=== PATIENT | male | born 1985 | race Caucasian/White ===

== ENCOUNTER 2018-12-09 03:09 | Emergency (ER) | payer MEDICAID ==
[~2018-12-09] VITALS: Ht 190.5 cm; Wt 77.2 kg
[2018-12-09] MEDS ORDERED: ketorolac trometh inj. 60 MG/2 ML VIAL IM ONE (03:55)
--- NOTE | 2018-12-09 03:55 | NUR ---
Discussed pt's pain and associated laceration, left lower lip and left hand. New order for Toradol received.
[2018-12-09 05:12] LABS: BASOPHILS % (AUTO) 0.5 % (0-1); EOSINOPHILS # (AUTO) 0.3 X10'3 (0-0.9); EOSINOPHILS % (AUTO) 3.4 % (0-6); HEMATOCRIT 32.7 % (42.0-52.0); HEMOGLOBIN 11.1 g/dl (14.0-17.9); LYMPHOCYTES # (AUTO) 0.9 X10'3 (1.1-4.8); LYMPHOCYTES % (AUTO) 11.3 % (21-51); MEAN CORPUSCULAR HEMOGLOBIN 29.4 PG (27.0-31.0); MEAN CORPUSCULAR HGB CONC 33.9 g/dL (33.0-36.5); MEAN CORPUSCULAR VOLUME 86.7 FL (78-98); MEAN PLATELET VOLUME 6.3 FL (7.4-10.4); MONOCYTES # (AUTO) 0.4 X10'3 (0-0.9); MONOCYTES % (AUTO) 5.6 % (2-12); NEUTROPHILS # (AUTO) 6.2 X10'3 (1.8-7.7); NEUTROPHILS % (AUTO) 79.2 % (42-75); PLATELET COUNT 289 X10'3 (140-440); RED BLOOD COUNT 3.78 X10'6 (4.70-6.10); RED CELL DISTRIBUTION WIDTH 14.6 % (11.5-14.5); WHITE BLOOD COUNT 7.8 X10'3 (4.5-11.0)
[2018-12-09 05:26] LABS: ALANINE AMINOTRANSFERASE 41 U/L (12-78); ALBUMIN 3.6 G/DL (3.4-5.0); ALKALINE PHOSPHATASE 75 IU/L (46-116); ANION GAP 7 (8-16); ASPARTATE AMINO TRANSFERASE 32 U/L (10-37); BILIRUBIN,TOTAL 0.3 MG/DL (0.1-1.0); BLOOD UREA NITROGEN 16 MG/DL (7-18); BUN/CREATININE RATIO 14.7 (5.4-32.0); CALCIUM 9.8 MG/DL (8.5-10.1); CHLORIDE 103 MMOL/L (99-107); CREATININE 1.09 MG/DL (0.60-1.10); GLUCOSE 156 MG/DL (70-104); POTASSIUM 4.2 MMOL/L (3.5-5.1); SODIUM 141 MMOL/L (135-145); TOTAL CARBON DIOXIDE 31.1 MMOL/L (24-32); TOTAL PROTEIN 7.3 G/DL (6.4-8.2); eGFR 79 ML/MIN
[2018-12-09] MEDS ORDERED: LIDOcaine 1% 30ml preserv. free vial IJ ONE (05:35)
--- NOTE | 2018-12-09 05:46 | NUR ---
Assisted Dr Dukes with lip suture. Left hand wounds cleaned, abx ointment applied then dressed with non adhesive dressing and taped in place.
[2018-12-09 05:53] VITALS: BP 133/71
== END 2018-12-09 06:16 | disposition home or self-care (01) ==
LOC: ER 03:10
DX: S01.511A Laceration without foreign body of lip, initial encounter (principal); S02.2XXA Fracture of nasal bones, initial encounter for closed fracture; S60.512A Abrasion of left hand, initial encounter; F15.90 Other stimulant use, unspecified, uncomplicated; F11.90 Opioid use, unspecified, uncomplicated; Y04.8XXA Assault by other bodily force, initial encounter; Y93.89 Activity, other specified; Y92.89 Other specified places as the place of occurrence of the external cause; Y99.8 Other external cause status
CPT/HCPCS: 12011; 36415; 70450; 70486; 71046; 72125; 80053; 85025; 96372; 99284; J1885; J3490

== ENCOUNTER 2018-12-31 14:46 | Emergency (ER) | payer MEDICAID ==
[~2018-12-31] VITALS: Ht 193 cm; Wt 79.5 kg
[2018-12-31 17:11] LABS: BASOPHILS % (AUTO) 0.2 % (0-1); EOSINOPHILS # (AUTO) 0.2 X10'3 (0-0.9); EOSINOPHILS % (AUTO) 1.4 % (0-6); HEMATOCRIT 33.1 % (42.0-52.0); HEMOGLOBIN 11.1 g/dl (14.0-17.9); LYMPHOCYTES % (AUTO) 8.5 % (21-51); MEAN CORPUSCULAR HEMOGLOBIN 28.8 PG (27.0-31.0); MEAN CORPUSCULAR HGB CONC 33.5 g/dL (33.0-36.5); MONOCYTES # (AUTO) 0.8 X10'3 (0-0.9); MONOCYTES % (AUTO) 6.6 % (2-12); NEUTROPHILS # (AUTO) 10.1 X10'3 (1.8-7.7); NEUTROPHILS % (AUTO) 83.3 % (42-75); PLATELET COUNT 356 X10'3 (140-440); RED BLOOD COUNT 3.85 X10'6 (4.70-6.10); RED CELL DISTRIBUTION WIDTH 14.8 % (11.5-14.5); WHITE BLOOD COUNT 12.1 X10'3 (4.5-11.0)
[2018-12-31 17:25] LABS: ALANINE AMINOTRANSFERASE 42 U/L (12-78); ALBUMIN 3.7 G/DL (3.4-5.0); ALBUMIN/GLOBULIN RATIO 0.9 (1.1-1.5); ALKALINE PHOSPHATASE 89 IU/L (46-116); ANION GAP 8 (8-16); ASPARTATE AMINO TRANSFERASE 28 U/L (10-37); BILIRUBIN,TOTAL 0.5 MG/DL (0.1-1.0); BLOOD UREA NITROGEN 14 MG/DL (7-18); BUN/CREATININE RATIO 13.9 (5.4-32.0); CALCIUM 9.6 MG/DL (8.5-10.1); CHLORIDE 98 MMOL/L (99-107); CREATININE 1.01 MG/DL (0.60-1.10); GLUCOSE 140 MG/DL (70-104); POTASSIUM 4.1 MMOL/L (3.5-5.1); SODIUM 134 MMOL/L (135-145); TOTAL CARBON DIOXIDE 28.4 MMOL/L (24-32); TOTAL PROTEIN 7.6 G/DL (6.4-8.2); eGFR 86 ML/MIN
[2018-12-31] MEDS ORDERED: HYDROcodone/acetaminophen 5mg/325mg tablet PO ONE (17:25)
[2018-12-31 18:04] VITALS: BP 123/68
[2018-12-31] MEDS ORDERED: CEPH-572 PO (19:34)
[2018-12-31] MEDS ORDERED: SULF1TAB49 PO (19:34)
== END 2018-12-31 19:48 | disposition home or self-care (01) ==
LOC: ER 14:47
DX: L02.511 Cutaneous abscess of right hand (principal); F15.90 Other stimulant use, unspecified, uncomplicated; F11.90 Opioid use, unspecified, uncomplicated; Z59.0 Homelessness
CPT/HCPCS: 10060; 26010; 36415; 73140; 80053; 85025; 85651; 99284

== ENCOUNTER 2019-01-03 13:02 | Emergency (ER) | payer MEDICAID ==
[~2019-01-03] VITALS: Ht 193 cm; Wt 79.0 kg
[~2019-01-03 13:02] MED LIST: CEPH-572 PO; SULF1TAB49 PO
[2019-01-03 13:24] VITALS: BP 110/69
== END 2019-01-03 15:29 | disposition home or self-care (01) ==
LOC: ER 13:02
DX: L02.511 Cutaneous abscess of right hand (principal); Z48.00 Encounter for change or removal of nonsurgical wound dressing; F15.90 Other stimulant use, unspecified, uncomplicated; F11.90 Opioid use, unspecified, uncomplicated; Z59.0 Homelessness; Z79.2 Long term (current) use of antibiotics; Z79.899 Other long term (current) drug therapy
CPT/HCPCS: 99281

== ENCOUNTER 2020-11-16 22:47 | Inpatient (IN) | payer MEDICAID ==
[~2020-11-16] VITALS: Ht 193 cm; Wt 79.7 kg
--- NOTE | 2020-11-16 22:55 | NUR ---
JESSIE JACKSON [phone] PT FRIEND WILL BE RIDE HOME
[2020-11-16] MEDS ORDERED: normal saline 1000ML IV soln IVB ONE (23:40)
[2020-11-17] VITALS (16 sets, daily range): BP systolic 96–124; BP diastolic 42–84
[2020-11-17 00:19] LABS: BASOPHILS % (AUTO) 0.4 % (0-1); EOSINOPHILS # (AUTO) 0.3 X10'3 (0-0.9); EOSINOPHILS % (AUTO) 2.7 % (0-6); HEMATOCRIT 33.3 % (42.0-52.0); HEMOGLOBIN 11.4 g/dl (14.0-17.9); LYMPHOCYTES # (AUTO) 1.7 X10'3 (1.1-4.8); LYMPHOCYTES % (AUTO) 16.7 % (21-51); MEAN CORPUSCULAR HEMOGLOBIN 30.3 PG (27.0-31.0); MEAN CORPUSCULAR HGB CONC 34.3 g/dL (33.0-36.5); MEAN CORPUSCULAR VOLUME 88.3 FL (78-98); MEAN PLATELET VOLUME 6.2 FL (7.4-10.4); MONOCYTES # (AUTO) 0.8 X10'3 (0-0.9); MONOCYTES % (AUTO) 8.3 % (2-12); NEUTROPHILS # (AUTO) 7.3 X10'3 (1.8-7.7); NEUTROPHILS % (AUTO) 71.9 % (42-75); PLATELET COUNT 302 X10'3 (140-440); RED BLOOD COUNT 3.77 X10'6 (4.70-6.10); RED CELL DISTRIBUTION WIDTH 14.4 % (11.5-14.5); WHITE BLOOD COUNT 10.1 X10'3 (4.5-11.0)
[2020-11-17 00:29] LABS: ALANINE AMINOTRANSFERASE 22 U/L (12-78); ALBUMIN 3.1 G/DL (3.4-5.0); ALBUMIN/GLOBULIN RATIO 0.7 (1.1-1.5); ALKALINE PHOSPHATASE 114 IU/L (46-116); ANION GAP 5 (8-16); ASPARTATE AMINO TRANSFERASE 19 U/L (10-37); BILIRUBIN,TOTAL 0.5 MG/DL (0.1-1.0); BLOOD UREA NITROGEN 14 MG/DL (7-18); BUN/CREATININE RATIO 16.1 (5.4-32.0); CALCIUM 8.8 MG/DL (8.5-10.1); CHLORIDE 98 MMOL/L (99-107); CREATININE 0.87 MG/DL (0.60-1.10); GLUCOSE 209 MG/DL (70-104); POTASSIUM 3.9 MMOL/L (3.5-5.1); SODIUM 135 MMOL/L (135-145); TOTAL CARBON DIOXIDE 31.6 MMOL/L (24-32); TOTAL PROTEIN 7.4 G/DL (6.4-8.2); eGFR > 90 ML/MIN
[2020-11-17 00:35] LABS: CLARITY,URINE CLEAR (Clear); COLOR,URINE YELLOW (Yellow); GLUCOSE, URINE 250 mg/dl (Neg); KETONES,URINE NEGATIVE (Neg); LEUKOCYTE ESTERASE ,URINE NEGATIVE (Neg); NITRITES, URINE NEGATIVE (Neg); OCCULT BLOOD,URINE NEGATIVE (Neg); PROTEIN,URINE TRACE mg/dl (Neg)
[2020-11-17 00:38] LABS: UA COLLECTION TYPE NON-SPECIFIED
[2020-11-17 00:47] LABS: AMORPHOUS PHOSPHATES 2+; BACTERIA,URINE FEW /HPF (Neg); RBC,URINE NONE SEEN /HPF (0-2); SQUAMOUS EPITHELIAL CELL,UR FEW /LPF (FEW); WBC,URINE 0-4 /HPF (0-4)
[2020-11-17 02:35] LABS: URINE AMPHETAMINE SCREEN POSITIVE (Neg); URINE BARBITUATE SCREEN NEGATIVE (Neg); URINE BENZODIAZEPINES SCREEN NEGATIVE (Neg); URINE CANNABINOID SCREEN POSITIVE (Neg); URINE COCAINE SCREEN NEGATIVE (Neg); URINE METHADONE SCREEN NEGATIVE (Neg); URINE OPIATE SCREEN POSITIVE (Neg); URINE PHENCYCLIDINE SCREEN NEGATIVE (Neg)
[2020-11-17] MEDS ORDERED: vancomycin/NS 1 GM ADD-VANTAGE 250 ML IV ONE (02:45)
[2020-11-17] MEDS ORDERED: normal saline 1000ML IV soln IVB ONE (02:50)
[2020-11-17] MEDS ORDERED: ketorolac tromethamine 15mg/ml inj. IV ONE (02:50)
[2020-11-17] MEDS ORDERED: iohexol 300mg/ml 100ml inj. ONE (02:56)
[2020-11-17 03:22] LABS: MAGNESIUM 1.8 MG/DL (1.5-2.4); TROPONIN I < 0.04 NG/ML (0.0-0.05)
--- NOTE | 2020-11-17 03:23 | NUR ---
pt to ct via wc
[2020-11-17 03:39] LABS: PARTIAL THROMBOPLASTIN TIME 29 SECONDS (22-32)
[2020-11-17] MEDS ORDERED: magnesium hydroxide 30ml (MOM) UD suspension PO PRN (04:45)
[2020-11-17] MEDS ORDERED: mag hydrox/Alum hydrox/simeth 30ml oral suspension PO PRN (04:45)
[2020-11-17] MEDS ORDERED: magnesium 4gm in 100ml NS 100 ML IV PRN (04:45)
[2020-11-17] MEDS ORDERED: magnesium 2GM in 50ml NS 50 ML IV PRN (04:45)
[2020-11-17] MEDS ORDERED: ondansetron/PF 4mg/2ml inj IV PRN ×2 (04:45→15:05)
[2020-11-17] MEDS ORDERED: morphine 2 MG/ML inj. syringe IV PRN ×2 (04:45→15:05)
[2020-11-17] MEDS ORDERED: acetaminophen 325mg tablet PO PRN (04:45)
[2020-11-17] MEDS ORDERED: potassium Cl 20 mEq SR tablet PO PRN ×2 (04:45)
[2020-11-17] MEDS ORDERED: magnesium Cl slow-release 64mg tablet PO PRN (04:45)
[2020-11-17] MEDS ORDERED: potassium Cl 40MEQ/1/2NS 520ml 520 ML IV PRN ×2 (04:45)
[2020-11-17] MEDS: normal saline 1000ml 1,000 ML IV SCH ×3 (05:10→18:25)
[2020-11-17 07:51] LABS: BASOPHILS % (AUTO) 0.4 % (0-1); EOSINOPHILS # (AUTO) 0.4 X10'3 (0-0.9); EOSINOPHILS % (AUTO) 3.5 % (0-6); HEMATOCRIT 34.2 % (42.0-52.0); HEMOGLOBIN 11.6 g/dl (14.0-17.9); LYMPHOCYTES # (AUTO) 1.6 X10'3 (1.1-4.8); LYMPHOCYTES % (AUTO) 14.9 % (21-51); MEAN CORPUSCULAR HEMOGLOBIN 29.8 PG (27.0-31.0); MEAN CORPUSCULAR HGB CONC 33.9 g/dL (33.0-36.5); MEAN PLATELET VOLUME 6.4 FL (7.4-10.4); MONOCYTES # (AUTO) 0.9 X10'3 (0-0.9); MONOCYTES % (AUTO) 8.2 % (2-12); NEUTROPHILS # (AUTO) 7.8 X10'3 (1.8-7.7); PLATELET COUNT 279 X10'3 (140-440); RED BLOOD COUNT 3.88 X10'6 (4.70-6.10); WHITE BLOOD COUNT 10.7 X10'3 (4.5-11.0)
[2020-11-17] MEDS: K and/or MAG REPLACEMENT MC SCH ×2 (08:00→20:00)
[2020-11-17 08:28] LABS: ALANINE AMINOTRANSFERASE 19 U/L (12-78); ALBUMIN 2.8 G/DL (3.4-5.0); ALBUMIN/GLOBULIN RATIO 0.7 (1.1-1.5); ALKALINE PHOSPHATASE 114 IU/L (46-116); ANION GAP 8 (8-16); ASPARTATE AMINO TRANSFERASE 16 U/L (10-37); BILIRUBIN,TOTAL 0.5 MG/DL (0.1-1.0); BLOOD UREA NITROGEN 11 MG/DL (7-18); BUN/CREATININE RATIO 14.3 (5.4-32.0); CALCIUM 8.8 MG/DL (8.5-10.1); CHLORIDE 102 MMOL/L (99-107); CREATININE 0.77 MG/DL (0.60-1.10); GLUCOSE 145 MG/DL (70-104); SODIUM 137 MMOL/L (135-145); TOTAL CARBON DIOXIDE 27.4 MMOL/L (24-32); eGFR > 90 ML/MIN
[2020-11-17] MEDS ORDERED: NO HOME MEDS ×2 (10:37→10:39)
[2020-11-17] MEDS: clindamycin 300mg/D5W 50mL 50 ML IV SCH ×3 (11:45→21:37)
[2020-11-17] MEDS: vancomycin/NS 1 GM ADD-VANTAGE 250 ML IV SCH ×2 (11:45→19:15)
[2020-11-17] MEDS: HYDROmorphone inj. 0.5 MG/0.5 ML DISP.SYRIN IV PRN ×2 (14:34→19:16)
[2020-11-17] MEDS ORDERED: BUPIVAcaine/PF 2.5mg/ml (0.25%) 10ml vial ONE (15:00)
--- NOTE | 2020-11-17 15:02 | NUR ---
Pt to or via bed report called to
[2020-11-17] MEDS ORDERED: morphine 4 MG/ML inj SYRINge IV PRN (15:05)
[2020-11-17] MEDS ORDERED: meperidine/PF 25mg/ml syringe IV PRN ×3 (15:05)
[2020-11-17] MEDS ORDERED: acetaminophen 1,000mg/100ml IV 100 ML IV PRN (15:05)
[2020-11-17] MEDS ORDERED: labetalol 20mg/4ml (5mg/ml) syringe IV PRN (15:05)
[2020-11-17] MEDS ORDERED: hydrALAZINE 20mg/ml inj. IV PRN (15:05)
[2020-11-17] MEDS ORDERED: proCHLORperazine 10 MG/2 ml inj IV PRN (15:05)
[2020-11-17] MEDS ORDERED: ringers solution, lacted 1,000 ML IV SCH (15:05)
[2020-11-17] MEDS ORDERED: sevoflurane 250ml liquid IH ONE (15:09)
[2020-11-17] MEDS ORDERED: midazolam 1 mg/ML 2ml injection ONE (15:10)
[2020-11-17] MEDS ORDERED: fentaNYL/PF 50MCG/1 ML 2ML syringe ONE (15:10)
[2020-11-17] MEDS ORDERED: ondansetron/PF 4mg/2ml inj ONE (15:26)
[2020-11-17] MEDS ORDERED: dexamethasone sod phosphate 4mg/ml inj. ONE (15:26)
[2020-11-17] MEDS ORDERED: propofol inj 20 ML IV ONE (15:26)
[2020-11-17] MEDS ORDERED: LIDOcaine 2% (20mg/ml) 5ml vial ONE (15:26)
[2020-11-17] MEDS ORDERED: morphine 10mg/ml inj. ONE (15:41)
--- NOTE | 2020-11-17 15:49 | NUR ---
Received from OR via , accompanied by Anesthesiologist DR DUONG and report given by Anesthesiolgist. AWAKENS TO VOICE. VITALS STABLE. DRESSING DI. ED PAIN.
--- NOTE | 2020-11-17 16:29 | NUR ---
Report called to receiving nurse. Transferred via BED Belongings . Special Issues communicated to receiving nurse. AWAKE AND ORIENTED. VITALS STABLE. DRESSING DI. DE PAIN. TO SURGICAL RM 350B AT THIS TIME.
--- NOTE | 2020-11-17 16:30 | NUR ---
Pt returned from OR sleepy, VS stable.
--- NOTE | 2020-11-17 18:18 | NUR ---
Problems reprioritized. Patient report given, questions answered & plan of care reviewed with KYLE Forrest
--- NOTE | 2020-11-17 18:25 | NUR ---
Patient in room [facility]. I have received report from KYLE Lopes and had the opportunity to ask questions and assume patient care.
[2020-11-18] VITALS: BP 119/62
--- NOTE | 2020-11-18 01:39 | NUR ---
Student documentation: I have reviewed and agree with all interventions, assessments performed and documented by Sindi Tamez [facility] [employer] student professor of apologetics assesment was charted by nurseGood RN .
[2020-11-18] MEDS ORDERED: VANCOMYCIN LEVEL IV ONE (02:30)
[2020-11-18] MEDS: HYDROmorphone inj. 0.5 MG/0.5 ML DISP.SYRIN IV PRN ×5 (02:31→19:07)
[2020-11-18] MEDS: clindamycin 300mg/D5W 50mL 50 ML IV SCH ×3 (02:33→14:23)
--- NOTE | 2020-11-18 02:43 | NUR ---
Due to not being able to draw a vancomycin level on patient, per pharmacist , I was told to have lab draw it with AM labs, and hold Vancomycin until after lab is drawn.
[2020-11-18 04:31] VITALS: BP 120/62
[2020-11-18] MEDS: vancomycin/NS 1 GM ADD-VANTAGE 250 ML IV SCH (05:25)
--- NOTE | 2020-11-18 06:13 | NUR ---
Problems reprioritized. Patient report given, questions answered & plan of care reviewed with KYLE Ma.
[2020-11-18 06:36] LABS: BASOPHILS % (AUTO) 0.1 % (0-1); EOSINOPHILS % (AUTO) 0 % (0-6); HEMATOCRIT 32.4 % (42.0-52.0); HEMOGLOBIN 10.9 g/dl (14.0-17.9); LYMPHOCYTES # (AUTO) 0.9 X10'3 (1.1-4.8); LYMPHOCYTES % (AUTO) 7.4 % (21-51); MEAN CORPUSCULAR HEMOGLOBIN 29.8 PG (27.0-31.0); MEAN CORPUSCULAR HGB CONC 33.7 g/dL (33.0-36.5); MEAN CORPUSCULAR VOLUME 88.3 FL (78-98); MEAN PLATELET VOLUME 6.5 FL (7.4-10.4); MONOCYTES # (AUTO) 0.4 X10'3 (0-0.9); MONOCYTES % (AUTO) 3.5 % (2-12); NEUTROPHILS # (AUTO) 11.4 X10'3 (1.8-7.7); PLATELET COUNT 351 X10'3 (140-440); RED BLOOD COUNT 3.67 X10'6 (4.70-6.10); RED CELL DISTRIBUTION WIDTH 13.9 % (11.5-14.5); WHITE BLOOD COUNT 12.8 X10'3 (4.5-11.0)
[2020-11-18 06:52] LABS: ALANINE AMINOTRANSFERASE 17 U/L (12-78); ALBUMIN 2.6 G/DL (3.4-5.0); ALBUMIN/GLOBULIN RATIO 0.6 (1.1-1.5); ALKALINE PHOSPHATASE 116 IU/L (46-116); ANION GAP 8 (8-16); ASPARTATE AMINO TRANSFERASE 14 U/L (10-37); BILIRUBIN,TOTAL 0.4 MG/DL (0.1-1.0); BLOOD UREA NITROGEN 11 MG/DL (7-18); BUN/CREATININE RATIO 12.5 (5.4-32.0); CHLORIDE 102 MMOL/L (99-107); CREATININE 0.88 MG/DL (0.60-1.10); GLUCOSE 238 MG/DL (70-104); POTASSIUM 4.4 MMOL/L (3.5-5.1); SODIUM 137 MMOL/L (135-145); TOTAL CARBON DIOXIDE 27.5 MMOL/L (24-32); eGFR > 90 ML/MIN
[2020-11-18 06:53] LABS: MAGNESIUM 1.9 MG/DL (1.5-2.4); VANCOMYCIN,TROUGH 8.6 UG/ML (6.0-14.0)
[2020-11-18] MEDS: K and/or MAG REPLACEMENT MC SCH ×2 (07:04→20:00)
[2020-11-18] MEDS: normal saline 1000ml 1,000 ML IV SCH ×3 (07:11→21:42)
[2020-11-18 07:58] VITALS: BP 122/62
[2020-11-18 11:00] VITALS: BP 117/56
[2020-11-18] MEDS ORDERED: VANCOmycin 1250MG/NS 250ml Bag 250 ML IV SCH (13:00)
[2020-11-18 18:00] VITALS: BP 108/59
--- NOTE | 2020-11-18 18:22 | NUR ---
Problems reprioritized. Patient report given, questions answered & plan of care reviewed with SANDIE WRIGHT.
--- NOTE | 2020-11-18 18:32 | NUR ---
I have received report from KYLE Ma and had the opportunity to ask questions and assume patient care.
[2020-11-18] MEDS: linezolid 600mg tablet PO SCH (19:06)
[2020-11-18] MEDS: lactobacillus rhamnosus 10,000 MMU CELLS/CAPSULE PO SCH (19:07)
[2020-11-19] VITALS: BP 110/64
[2020-11-19] MEDS: HYDROmorphone inj. 0.5 MG/0.5 ML DISP.SYRIN IV PRN ×4 (01:22→17:36)
[2020-11-19 06:25] LABS: BASOPHILS % (AUTO) 0.4 % (0-1); EOSINOPHILS # (AUTO) 0.2 X10'3 (0-0.9); EOSINOPHILS % (AUTO) 3.1 % (0-6); HEMATOCRIT 32.1 % (42.0-52.0); HEMOGLOBIN 11.1 g/dl (14.0-17.9); LYMPHOCYTES # (AUTO) 2.3 X10'3 (1.1-4.8); LYMPHOCYTES % (AUTO) 28.8 % (21-51); MEAN CORPUSCULAR HEMOGLOBIN 30.5 PG (27.0-31.0); MEAN CORPUSCULAR HGB CONC 34.6 g/dL (33.0-36.5); MEAN CORPUSCULAR VOLUME 88.2 FL (78-98); MEAN PLATELET VOLUME 6.2 FL (7.4-10.4); MONOCYTES # (AUTO) 0.5 X10'3 (0-0.9); MONOCYTES % (AUTO) 5.9 % (2-12); NEUTROPHILS # (AUTO) 4.9 X10'3 (1.8-7.7); NEUTROPHILS % (AUTO) 61.8 % (42-75); PLATELET COUNT 340 X10'3 (140-440); RED BLOOD COUNT 3.64 X10'6 (4.70-6.10); WHITE BLOOD COUNT 7.9 X10'3 (4.5-11.0)
[2020-11-19 06:36] LABS: ANION GAP 6 (8-16); BLOOD UREA NITROGEN 12 MG/DL (7-18); BUN/CREATININE RATIO 13.8 (5.4-32.0); CHLORIDE 104 MMOL/L (99-107); CREATININE 0.87 MG/DL (0.60-1.10); GLUCOSE 110 MG/DL (70-104); POTASSIUM 3.9 MMOL/L (3.5-5.1); SODIUM 140 MMOL/L (135-145); TOTAL CARBON DIOXIDE 29.6 MMOL/L (24-32); eGFR > 90 ML/MIN
[2020-11-19 06:37] LABS: ALANINE AMINOTRANSFERASE 18 U/L (12-78); ALBUMIN 2.7 G/DL (3.4-5.0); ALBUMIN/GLOBULIN RATIO 0.6 (1.1-1.5); ALKALINE PHOSPHATASE 110 IU/L (46-116); ASPARTATE AMINO TRANSFERASE 11 U/L (10-37); BILIRUBIN,TOTAL 0.3 MG/DL (0.1-1.0); CALCIUM 8.8 MG/DL (8.5-10.1); TOTAL PROTEIN 7.1 G/DL (6.4-8.2)
--- NOTE | 2020-11-19 06:43 | NUR ---
Problems reprioritized. Patient report given, questions answered & plan of care reviewed with KYLE Cano.
--- NOTE | 2020-11-19 06:45 | NUR ---
Patient in room [facility]. I have received report from KYLE Funk and had the opportunity to ask questions and assume patient care.
[2020-11-19 06:46] LABS: HIV ANTIBODY 1&2 RAPID NON-REACTIVE (Neg)
[2020-11-19 08:00] VITALS: BP 95/51
[2020-11-19] MEDS: K and/or MAG REPLACEMENT MC SCH (08:00)
[2020-11-19] MEDS: linezolid 600mg tablet PO SCH (08:24)
[2020-11-19] MEDS: lactobacillus rhamnosus 10,000 MMU CELLS/CAPSULE PO SCH (08:24)
[2020-11-19] MEDS: normal saline 1000ml 1,000 ML IV SCH (08:27)
[2020-11-19 11:00] VITALS: BP 131/78
[2020-11-19] MEDS ORDERED: VANCOMYCIN LEVEL IV ONE (12:30)
--- NOTE | 2020-11-19 14:38 | NUR ---
Pt admit with GREGORIA abscess, s/p I&D 11/17. Pt on PO Zyvox. Attempted visit with pt at bedside however pt sleeping and did not wake with verbal cues. Written protein and low tyramine nutrition therapy educations with RD contact information left at bedside. Pt on a regular diet documented with 100% PO intake. D/w dietary to send double protein TID for satiety. Noted that current documented wt is 175 kg resulting in BMI of 47.0. Pt does not appear to be this size, likely that wt in lbs was documented in kg. More likely that pt is 79.54 kg resulting in appropriate BMI of 21. Will continue to follow. Addendum: 11/19/20 at [address] Amended: Links added. Addendum: 11/19/20 at [address] RD informed clinical pharmacist about wt inaccuracy in EMR in case pt receiving wt based medications. Clinical pharmacist updated wt in EMR.
--- NOTE | 2020-11-19 18:10 | NUR ---
PAGER ID: [phone] MESSAGE: [id number]- Salvador Abdul- wanting to go AMA. still has pin jade drain in. orthopedics did not see yet today- Jerome [phone]
--- NOTE | 2020-11-19 18:10 | NUR ---
Notified by skilled nursing professional that patient wanting to leave. Went to check on patient and patient in room dressed and getting belongings packed. Patient states, "I'm going to leave. I just want to leave. I'm sorry." Discussed with patient that we are waiting for culture results, he is requiring abx and has wound with pen jade drain as well as awaiting for Ortho MD to see patient before DC. Educated patient that he will be leaving AMA and he would not have the abx he needs. Patient states, "no I waited all day I can't anymore. I'll just come back tomorrow." Asked patient to wait to speak to Dr and patient agreed but when notifying Dr Whipple and calling Dr. Salamanca patient seen walking down burt with belongings and stated he was leaving. X2 IV dc'd. patient ambulated out independenlty.
--- NOTE | 2020-11-19 18:28 | NUR ---
Student documentation: I have reviewed and agree with all interventions, assessments performed and documented by SN Lit.Student Medication Administration: For this medication-pass time frame, all medication were reviewed, dispensed, administered and documented per hospital policy by SN Lit.
== END 2020-11-19 18:00 | disposition left against medical advice (07) | DRG 364 ==
LOC: ER 22:48 → ED HOLD 11-17 04:42 → SUR 3N 11-17 05:30
PROVIDERS: ADMIT Family Medicine; ATTEND Family Medicine
PROC: BP2U1ZZ Computerized Tomography (CT Scan) of Left Upper Extremity using Low Osmolar Contrast (ICD-10-PCS; 2020-11-17)
PROC: 0JDH0ZZ Extraction of Left Lower Arm Subcutaneous Tissue and Fascia, Open Approach (ICD-10-PCS; principal; 2020-11-17 15:09)
DX: L02.414 Cutaneous abscess of left upper limb (principal); F15.10 Other stimulant abuse, uncomplicated; F11.90 Opioid use, unspecified, uncomplicated; Z20.822 Contact with and (suspected) exposure to COVID-19; F17.200 Nicotine dependence, unspecified, uncomplicated; L03.114 Cellulitis of left upper limb; Z53.29 Procedure and treatment not carried out because of patient's decision for other reasons; F19.10 Other psychoactive substance abuse, uncomplicated; Z59.0 Homelessness
CPT/HCPCS: 36415; 71045; 73201; 80053; 80074; 80202; 80305; 81001; 82948; 83605; 83735; 83880; 84145; 84484; 85025; 85610; 85730; 86140; 86703; 87040; 87070; 87081; 87635; 93005; 93306; 93308; 99285; A4215; A4618; A6222; A6446; A6449; A7000; G0378; J1100; J1170; J1885; J2001; J2250; J2270; J2405; J2704; J3010; J3370; J3490; J7030; Q9967

== ENCOUNTER 2023-01-25 18:32 | Emergency (ER) | payer MEDICAID ==
[~2023-01-25] VITALS: Ht 193 cm; Wt 75.0 kg
[~2023-01-25 18:32] MED LIST changes: -CEPH-572 PO; +NO HOME MEDS; -SULF1TAB49 PO
[2023-01-25 19:06] VITALS: BP 145/102
[2023-01-25] MEDS ORDERED: cephalexin 500mg capsule PO ONE (19:50)
[2023-01-25] MEDS ORDERED: sulfamethoxazole/trimethoprim DS (800/160mg) tablet PO ONE (19:50)
[2023-01-25] MEDS ORDERED: CEPH-585 PO (19:55)
[2023-01-25] MEDS ORDERED: SULF1TAB49 PO (19:55)
== END 2023-01-25 20:08 | disposition home or self-care (01) ==
LOC: ER 18:33
DX: L02.511 Cutaneous abscess of right hand (principal); L03.011 Cellulitis of right finger; F15.90 Other stimulant use, unspecified, uncomplicated; F11.90 Opioid use, unspecified, uncomplicated; Z60.2 Problems related to living alone; Z59.00 Homelessness unspecified; Z79.899 Other long term (current) drug therapy
CPT/HCPCS: 10060; 99283

== ENCOUNTER 2023-01-26 17:56 | Emergency (ER) | payer MEDICAID ==
[~2023-01-26] VITALS: Ht 193 cm; Wt 81.8 kg
[~2023-01-26 17:56] MED LIST changes: +CEPH-585 PO; +SULF1TAB49 PO
[2023-01-26 17:59] VITALS: BP 136/82
== END 2023-01-26 18:40 | disposition home or self-care (01) ==
LOC: ER 17:56
DX: S60.321D Blister (nonthermal) of right thumb, subsequent encounter (principal); F15.20 Other stimulant dependence, uncomplicated; Z59.00 Homelessness unspecified; X58.XXXD Exposure to other specified factors, subsequent encounter
CPT/HCPCS: 99282; A6222; A6449

== ENCOUNTER 2024-04-22 13:24 | Emergency (ER) | payer MEDICAID ==
[~2024-04-22] VITALS: Ht 193 cm; Wt 79.5 kg
[~2024-04-22 13:24] MED LIST changes: -CEPH-585 PO; -SULF1TAB49 PO
[2024-04-22 13:25] VITALS: TEMP 97.8
[2024-04-22 15:36] VITALS: BP 110/68; PULSE 80; O2SAT 100
[2024-04-22 16:19] VITALS: RESP 18
[2024-04-22] MEDS: ketorolac trometh. 30mg/ml inj. IM ONE (16:19)
[2024-04-22] MEDS: ketorolac tromethamine 15mg/ml inj. IM ONE (16:42)
== END 2024-04-22 16:46 | disposition left against medical advice (07) ==
LOC: ER 13:24
DX: S02.611A Fracture of condylar process of right mandible, initial encounter for closed fracture (principal); S02.602A Fracture of unspecified part of body of left mandible, initial encounter for closed fracture; F15.90 Other stimulant use, unspecified, uncomplicated; X58.XXXA Exposure to other specified factors, initial encounter; Y93.89 Activity, other specified; Y92.89 Other specified places as the place of occurrence of the external cause; Y99.8 Other external cause status
CPT/HCPCS: 70100; 96372; 99283; J1885